=== PATIENT | male | born 1980 | race Caucasian/White ===

== ENCOUNTER 2022-12-24 15:03 | Outpatient (CLI) | payer SELFPAY ==
--- NOTE | 2022-12-24 15:15 | US_ITS ---
WS: [id number] ULTRASOUND SOFT TISSUES LEFT inguinal region and LEFT lower abdomen. HISTORY: K40.90 - Unilateral inguinal hernia, without obstruction ... COMPARISON: None available. TECHNIQUE: 2-D and color Doppler imaging is submitted. Ultrasound is directed to the LEFT inguinal region. Prominent fat is noted in the LEFT inguinal regio n. No peristalsing loop of GI tract. There is a loop of small bowel in the LEFT abdomen which was not ed with peristalsis during the examination. The wall is not thickened. US/US soft tissue/extremity [id number] IMPRESSION: Normal ultrasound LEFT lower quadrant and inguinal canal. If further evaluation is necessary CT would provide additional information.
== END 2022-12-24 15:04 | disposition home or self-care (01) ==
PROVIDERS: PCP Nurse Practitioner; Visit Provider Nurse Practitioner
DX: K40.90 Unilateral inguinal hernia, without obstruction or gangrene, not specified as recurrent (principal)
CPT/HCPCS: 76882

== ENCOUNTER → 2023-01-18 11:12 | Outpatient (BNVA) | payer SELFPAY | PROVIDERS: PCP Nurse Practitioner; Visit Provider Nurse Practitioner | DX: R10.9 Unspecified abdominal pain (principal) | CPT/HCPCS: 81000; 85025 ==